=== PATIENT | female | born 1955 | race Caucasian/White ===

== ENCOUNTER → 2016-08-10 | Outpatient (CLI) | payer BC ==
[~2016-08-10] MED LIST: ASP81CT PO; BP MED; CALCIUM PO; LISI10TA PO; LISI20TA PO; MTP25TSR PO; MULT-608 PO; SMV20T PO
--- NOTE | 2016-08-10 13:27 | Diagnostic Imaging Report ---
EXAMINATION: Digital mammogram bilateral screening. INDICATION: Screening. COMPARISON: This study was compared to the prior exam of 08/01/2014 and 11/28/2012. At this time, there are no current complaints. The current study was also evaluated with a Computer Aided Detection (CAD) system. FINDINGS: There are scattered fibroglandular densities in both breasts which could obscure a lesion. Overall, there does not appear to have been any significant change when compared to the prior exam. No primary or secondary sign of malignancy is noted. IMPRESSION: There is no radiographic evidence for malignancy. ACR BI-RADS Category 2: Benign findings. Result letter will be mailed to the patient. Note: At least 10% of breast cancer is not imaged by mammography. Dictated by: Dictated on workstation # [id number]
== END ==
LOC: RAD 09:48
PROVIDERS: ATTEND Family Medicine
DX: Z12.31 Encounter for screening mammogram for malignant neoplasm of breast (principal)

== ENCOUNTER → 2017-04-24 | Outpatient (CLI) | payer BC ==
--- NOTE | 2017-04-24 16:01 | Diagnostic Imaging Report ---
PROCEDURE: CT left lower extremity without contrast. TECHNIQUE: Multiple contiguous axial images were obtained through the left lower extremity without the use of intravenous contrast. Sagittal and coronal reformations were then performed. INDICATION: Left lateral knee pain. FINDINGS: There is no fracture, subluxation or dislocation identified. There is very minimal osteophyte formation at the tibial spine seen and minimal lipping along the upper and lower aspects of the patella. There is no significant joint space loss seen. There is a small suprapatellar effusion. The muscles demonstrate normal bulk around the knee. The extensor mechanism and ligaments and menisci are grossly evaluated by CT scan with no obvious abnormality. These structures are better evaluated by MRI however. IMPRESSION: Tiny suprapatellar joint effusion. No significant abnormalities seen otherwise. Dictated by: Dictated on workstation # [id number]
== END ==
LOC: RAD 13:35
DX: M25.462 Effusion, left knee (principal)
CPT/HCPCS: 73700

== ENCOUNTER → 2019-01-12 | Outpatient (CLI) | payer BC ==
--- NOTE | 2019-01-12 13:50 | Diagnostic Imaging Report ---
INDICATION: Screening. TECHNIQUE: The current study was also evaluated with a Computer Aided Detection (CAD) system. 3D Tomographic imaging was also performed. COMPARISON: 08/10/2016, 07/22/2014, and 11/28/2012. FINDINGS: There are scattered fibroglandular densities bilaterally. There are benign type calcifications in both breasts. There is no dominant mass, spiculated lesion, or suspicious calcification identified. The skin, nipples, and axillae are unremarkable. IMPRESSION: Benign findings. ACR BI-RADS Category 2: Benign findings. Result letter will be mailed to the patient. Note: At least 10% of breast cancer is not imaged by mammography. Dictated by: Dictated on workstation # [id number]
== END ==
LOC: RAD 09:27
PROVIDERS: ATTEND Family Medicine
DX: Z12.31 Encounter for screening mammogram for malignant neoplasm of breast (principal)
CPT/HCPCS: 77067

== ENCOUNTER → 2022-03-08 | Outpatient (CLI) | payer BC, MEDICARE ==
--- NOTE | 2022-03-08 13:51 | Diagnostic Imaging Report ---
INDICATION: Chest pain PA and lateral chest Heart and mediastinum are normal. Lungs are clear. There are no effusions or pneumothoraces. IMPRESSION: No acute abnormalities in the chest. Dictated by: Dictated on workstation # [id number]
== END ==
LOC: RAD 13:26
PROVIDERS: ATTEND Family Medicine
DX: R07.89 Other chest pain (principal)
CPT/HCPCS: 71046

== ENCOUNTER → 2022-04-11 | Outpatient (CLI) | payer MEDICARE ==
--- NOTE | 2022-04-11 15:11 | Diagnostic Imaging Report ---
INDICATION: Routine screening. COMPARISON: 01/12/2019 and 08/10/2016. TECHNIQUE: 2D and 3D bilateral screening mammography was performed with CAD. FINDINGS: Scattered fibroglandular densities are identified bilaterally. Scattered benign-appearing calcifications are noted bilaterally. The benign-appearing nodular densities in the right breast appear stable. No spiculated mass or malignant-appearing microcalcifications are seen. The axillae are unremarkable. IMPRESSION: No mammographic features suspicious for malignancy are identified. ACR BI-RADS Category 2: Benign findings. Result letter will be mailed to the patient. Note: At least 10% of breast cancer is not imaged by mammography. Dictated by: Dictated on workstation # [id number]
== END ==
LOC: RAD 09:53
PROVIDERS: ATTEND Family Medicine
DX: Z12.31 Encounter for screening mammogram for malignant neoplasm of breast (principal)
CPT/HCPCS: 77063; 77067